=== PATIENT | female | born 1975 | race Caucasian/White ===

== ENCOUNTER 2020-01-03 12:46 | Emergency (ER) | payer OTHER, SELFPAY ==
[2020-01-03 12:51] VITALS: BP 138/83; PULSE 77; RESP 16; TEMP 36.5; O2SAT 100
--- NOTE | 2020-01-03 13:11 | ED.URI ---
HPI - URI/Sore Throat General Chief Complaint: Upper Respiratory Infection Stated Complaint: COUGH/STUFFY NOSE/CONGESTION Time Seen by Provider: 01/03/20 12:59 Source: patient Mode of arrival: ambulatory Limitations: no limitations History of Present Illness HPI Narrative: 44-year-old female presents for evaluation of symptoms that been present for 3 weeks. She reports that initially developed with rhinorrhea, nasal congestion, cough. Since then she is been experiencing bilateral ear popping, facial pressure, nonproductive cough, chest burning with deep inhalation, fatigue. She is a runner and reports illness is interfering with her activity. She has been exposed to family members with similar symptoms. She did not get a flu shot this season. She has used [id number] cold medications, Mucinex, sends inhaler, ibuprofen for her symptoms. Previously healthy. Gets yeast infections often with antibiotics. Related Data Home Medications Medication Instructions Recorded Confirmed levothyroxine [Synthroid] 88 mcg PO DAILY 01/03/20 01/03/20 Allergies Allergy/AdvReac Type Severity Reaction Status Date / Time Sulfa (Sulfonamide AdvReac Unknown Vomiting Verified 01/03/20 12:57 Antibiotics) Review of Systems Review of Systems: Narrative: CONSTITUTIONAL: Denies fever, chills, weight loss, or sweats. EYES: Denies visual changes, redness, or discharge. ENT: Reports rhinorrhea, congestion, otalgia, facial pressure. Denies sore throat CARDIOVASCULAR: Denies chest pain, palpitations, or edema. RESPIRATORY: Denies dyspnea. Reports cough, mid chest burning with deep inhalation GASTROINTESTINAL: Denies abdominal pain, nausea, vomiting, or diarrhea. GENITOURINARY: Denies dysuria, hematuria, urinary frequency, malordous urine SKIN: Denies rash or itching. MUSCULOSKELETAL: Denies back pain, joint pain, myalgia, swelling NEUROLOGIC: Denies headache, numbness, or weakness. PSYCHIATRIC: Denies anxiety or depression. All systems reviewed & are unremarkable except as noted in HPI and below PMFSH Comments At the time of my signature, I agree with nursing past medical, surgical, social and family history. There is no relevant family history pertinent to the presenting complaint. Exam Narrative: Exam Narrative: GENERAL: No distress, well appearing, well nourished, alert and calm HEAD: Normocephalic, atraumatic. Maxillary sinus tenderness noted. EYES: Pupils equal, round. Extraocular movements intact. Conjunctivae without redness or drainage. EARS: Tympanic membranes without erythema. TM landmarks intact with good light reflex. Ear canals without discharge. NOSE: Nares patent. Nasal turbinates noninflamed. No nasal discharge MOUTH: Mucous membranes moist. No lesions. No cyanosis. Dentition grossly normal. THROAT: Oropharynx without signs erythema, exudates or lesions. Tonsils not enlarged. NECK: Supple. No lymphadenopathy. RESPIRATORY: Airway patent. Chest clear to auscultation bilaterally. Breath sounds equal bilaterally. No retractions. No chest tenderness to palpation. 100% room air CARDIOVASCULAR: Regular rate and rhythm. No murmurs, rubs, gallops, or clicks. Capillary refill <2 seconds. SKIN: Color normal. Warm and dry. No rashes. NEURO: Alert. Motor intact in all extremities. Muscle tone normal. PSYCHIATRIC: Responds appropriately to providers. Course Vital Signs Vital signs: Vital Signs Temperature 97.7 F 01/03/20 12:51 Pulse Rate 77 01/03/20 12:51 Respiratory Rate 16 01/03/20 12:51 Blood Pressure 138/83 01/03/20 12:51 Pulse Oximetry 100 01/03/20 12:51 Temperature 97.7 F 01/03/20 12:51 Pulse Rate 77 01/03/20 12:51 Respiratory Rate 16 01/03/20 12:51 Blood Pressure 138/83 01/03/20 12:51 Pulse Oximetry 100 01/03/20 12:51 The patient has been informed that they may have pre-hypertension or Hypertension based on a BP reading in the department. I recommend that the patient call the primary
== END 2020-01-03 13:25 | disposition home or self-care (01) ==
PROVIDERS: Emergency Provider Nurse Practitioner
DX: J32.9 Chronic sinusitis, unspecified (principal); J22 Unspecified acute lower respiratory infection; E03.9 Hypothyroidism, unspecified
CPT/HCPCS: 99213; G0463

== ENCOUNTER 2021-02-05 13:03 | Emergency (ER) | payer OTHER, SELFPAY ==
--- NOTE | ~2021-02-05 | XR_ITS ---
EXAMINATION: XR abdomen/kub 1V DATE: 02/05/2021 13:54 INDICATION: Constipation TECHNIQUE: A supine view of the abdomen on 2 radiographs was obtained. COMPARISON: None. FINDINGS: Moderate amount of gas scattered throughout multiple nondilated loops of bowel. Small amount of scatt ered colonic stool. Lung bases are clear. No pleural effusion. Bones are unremarkable. IMPRESSION: 1. Normal bowel gas pattern with small amount of scattered colonic stool. Reviewed, dictated and finalized at location A.
[2021-02-05 13:28] VITALS: BP 125/78; PULSE 81; RESP 16; TEMP 37.3; O2SAT 100
--- NOTE | 2021-02-05 13:29 | ED.ABDPAIN ---
HPI - Abdominal Pain General Chief Complaint: Abdominal Pain Stated Complaint: abdominal discomfort Time Seen by Provider: 02/05/21 13:29 Source: patient Mode of arrival: ambulatory Limitations: no limitations History of Present Illness HPI narrative: Bianca Cristina is a 45 yo female with PMH of anemia, hypothyroid, comes to [facility] with concern about some level of constipation. She is not having pain; in the last day was not as large as she would expect. Takes iron daily for low hemoglobin Related Data Home Medications Medication Instructions Recorded Confirmed levothyroxine [Synthroid] 88 mcg PO DAILY 01/03/20 02/05/21 ferrous sulfate 325 mg PO DAILY 02/05/21 02/05/21 [id number] K tablet PO 02/05/21 [Adults Multivitamin] Allergies Allergy/AdvReac Type Severity Reaction Status Date / Time Sulfa (Sulfonamide AdvReac Unknown Vomiting Verified 02/05/21 13:18 Antibiotics) Review of Systems Review of Systems: Narrative: CONSTITUTIONAL: Denies fever, chills, sweats. EYES: Denies visual changes, redness, discharge. ENT: Denies rhinorrhea, congestion, sore throat, otalgia. CARDIOVASCULAR: Denies chest pain, palpitations, edema. RESPIRATORY: Denies dyspnea, wheezing, cough GASTROINTESTINAL: Denies abdominal pain, nausea, vomiting, diarrhea. Thinks she may be constipated/impacted GENITOURINARY: Denies dysuria, hematuria, abnormal discharge SKIN: Denies rash or itching. NEUROLOGIC: Denies numbness, or focal weakness. PSYCHIATRIC: Denies anxiety or depression. PMFSH Past Medical History Medical History Anemia Hypothyroid Social History Social History (Updated 02/05/21 @ 13:58 by Enid Britton CNP) Smoking status: Never smoker Alcohol intake: current Comments At time of signature, I agree with nursing past medical, surgical, social and family history. There is no relevant family history pertinent to the presenting complaint. Exam Narrative: Exam Narrative: GENERAL: This is a well-nourished, well-developed patient, in mild distress. HEAD: normocephalic, atraumatic. EYES: Sclera clear/white. Vision is grossly intact. EARS: External ears normal. Hearing grossly intact. NOSE: External nose normal without nasal discharge, nares without redness, no rhinorrhea. THROAT: Mucous membranes moist, NECK: Neck supple, non-tender CARDIOVASCULAR: Regular rate and rhythm without murmurs, gallops, or rubs. RESPIRATORY: Clear to auscultation. Breath sounds equal bilaterally. No wheezes, rales, or rhonchi. GASTROINTESTINAL: Abdomen soft, non-tender, SKIN: warm, intact with no suspicious lesions or rash, good texture and turgor. NEURO: awake, alert, and oriented to person, place and time. There were no obvious focal neurologic abnormalities. Steady gait EXTREMITIES: Normal range of motion. BACK: Nontender without deformity Course Course Emergency Course: Patient comes to [facility] because she believes she is constipated or impacted from her ongoing use of iron KUB done- results -normal gas pattern with small amount of scattered colonic stool, nondilated loops of bowel Started on daily Colace and mineral oil enema as needed-recommended she start by taking Colace daily and if develop diarrhea to back her dosage off to every other day, or oil enema to soften stool if needed Vital Signs Vital signs: Vital Signs Temperature 99.1 F 02/05/21 13:28 Pulse Rate 81 02/05/21 13:28 Respiratory Rate 16 02/05/21 13:28 Blood Pressure 125/78 02/05/21 13:28 Pulse Oximetry 100 02/05/21 13:28 Temperature 99.1 F 02/05/21 13:28 Pulse Rate 81 02/05/21 13:28 Respiratory Rate 16 02/05/21 13:28 Blood Pressure 125/78 02/05/21 13:28 Pulse Oximetry 100 02/05/21 13:28 MDM - Abdominal Pain Differential Diagnosis Differential diagnosis: Likely constipation, small bowel obstruction and other Imaging Data Radio
== END 2021-02-05 14:23 | disposition home or self-care (01) ==
PROVIDERS: Emergency Provider Nurse Practitioner
DX: K59.09 Other constipation (principal); D64.9 Anemia, unspecified; E03.9 Hypothyroidism, unspecified
CPT/HCPCS: 74018; 99213; G0463